=== PATIENT | male | born 1970 | race Caucasian/White ===

== ENCOUNTER 2020-07-18 08:26 | Inpatient (IN) | payer OTHER ==
[~2020-07-18] VITALS: Ht 200.7 cm; Wt 122.0 kg
[2020-07-18] VITALS (11 sets, daily range): BP systolic 108–126; BP diastolic 57–68
[~2020-07-18 08:26] MED LIST: ULTRAM50 M1 PO
--- NOTE | 2020-07-18 08:26 | NUR ---
PATIENT TO ROOM VIA EMS AND PHYSICIAN AT BEDSIDE FOR EVAL
[2020-07-18 09:08] LABS: GFR > 60 ML/MIN (>=60 (CALC)); GFR FOR AFR.AMER. > 60 ML/MIN (>=60 (CALC))
[2020-07-18 09:11] LABS: HEMATOCRIT 38.6 % (39.0-50.0); HEMOGLOBIN 12.9 g/dl (14.0-18.0); IMMATURE GRANULOCYTES 0.4 % (0.0-5.0); MEAN CELL VOLUME 87.9 fL CALC (80.0-100.0); MEAN CORPUSCULAR HGB 29.4 pG CALC (26.0-32.0); MEAN CORPUSCULAR HGB CONC 33.4 g/dL CAL (32.0-36.0); NEUT# 6.45 thou/uL (1.82-7.42); RED BLOOD COUNT 4.39 mill/uL (4.70-6.10); RED CELL DISTRI WIDTH 13.2 % (11.5-15.5)
[2020-07-18 09:28] LABS: ALBUMIN 3.7 g/dL (3.2-5.0); ANION GAP 9 (6-22 (CALC)); BILIRUBIN, TOTAL 0.7 mg/dL (0.0-1.4); BUN 17 mg/dL (9-20); BUN/CREATININE RATIO 17 (12-20 (CALC)); CARBON DIOXIDE 27 mmol/l (22-30); CHLORIDE 105 mmol/l (95-108); GFR > 60 ML/MIN (>=60 (CALC)); GFR FOR AFR.AMER. > 60 ML/MIN (>=60 (CALC)); MAGNESIUM 1.8 mg/dL (1.6-2.3); POTASSIUM 3.9 mmol/l (3.5-5.1); SGOT/AST 21 u/l (17-59); SODIUM 136 mmol/l (137-146); TOTAL PROTEIN 6.2 g/dL (6.3-8.2)
[2020-07-18 09:29] LABS: ALKALINE PHOSPHATASE 28 u/l (38-126)
--- NOTE | 2020-07-18 09:30 | NUR ---
RESTING ON STRETCHER. CALL TIAN WITH GUARDS. GUARDS AT BEDSIDE.
[2020-07-18 09:40] LABS: ACT PARTIAL THROMBO TIME 21.3 SECONDS (20.0-32.5); INTERNATIONAL NORMALIZED RATIO 1.1 RATIO (0.7-1.3); PROTHROMBIN TIME 10.8 SECONDS (9.0-12.5)
--- NOTE | 2020-07-18 10:30 | NUR ---
RESTING ON STRETCHER. AWAITING TRANSPORT TO FLOOR
[2020-07-18] MEDS ORDERED: METFORMIN500 M2 PO (11:01)
[2020-07-18] MEDS ORDERED: TOPROL XL25 M1 PO (11:03)
[2020-07-18] MEDS ORDERED: FENOFIBRATE160 MG PO (11:03)
[2020-07-18] MEDS ORDERED: DIPHENHYDRAM50 M2 PO (11:04)
[2020-07-18] MEDS ORDERED: TRAZODONE100 MG PO (11:04)
--- NOTE | 2020-07-18 11:24 | NUR ---
REPORT TO SHARDA LARSEN TRANSFERRED TO ICU WITH RN FCC RN NOTIFIED OF ADMIT STATUS
--- NOTE | 2020-07-18 11:39 | NUR ---
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
--- NOTE | 2020-07-18 11:39 | NUR ---
male pt received from ER via stretcher accompanied by Maryanne Jose RN in stable condition; guards x2 present; pt denies ability to move or assist with transfer to bed; pt transferred to bed x5 staff plus guards/ no assistance per pt; admission assessment completed at this time; pt alert and oriented; denies pain; no n/v noted; resp even and unlabored; lungs clear bilat; skin color wnl; ra; hr reg; strong pulses; no edema noted; sr on monitor; abd soft with bs present; no bm noted per editorial writer; no urine to inspect at this time; urinal placed at bedside; #20 flushed and patent to lac; no redness or edema noted at site; contussion noted to head; lac x3 noted to forehead; bleeding noted from nose; NIH completed ans scored at 18; pt denies ability to move all extremities/ neck; extremitied repositioned per pt request including adjusting glasses; plan of care explained; will continue to monitor
[2020-07-18] MEDS ORDERED: METOPROL TAR25 MG PO (11:58)
--- NOTE | 2020-07-18 13:15 | NUR ---
Dr Suh called per marine underwriter; [facility] results reviewed; explained per this marine underwriter pt lack of movement in all extremities; orders receivef=d and on chart
--- NOTE | 2020-07-18 14:05 | NUR ---
awake in bed; call light activated per guards; pt requsting staff to "move my arm around"; admits to numbness in arm; pt continues to deny abilty to move arm/ hand; staff at bedside to witness hand movement in connection with speaking; arm repositined per request; pt then request something for anxiety;
--- NOTE | 2020-07-18 14:16 | NUR ---
call light activated per guards; pt requesting to be pulled up in bed;
--- NOTE | 2020-07-18 14:17 | NUR ---
guard at nursing station requesting per pt; requesting to be pulled up in bed; awating additinal help
--- NOTE | 2020-07-18 14:25 | NUR ---
staff at bedside to reposition pt; pt request to have head flat; pt explained MD order require head to be elevated; service writer advisor attempts to lay pt back for repositioning and pt states "that's to low"; service writer advisor informed pt of his previously statement about lying as flat as a board; pt repositioned to left side with pillow propped under right side; pt states "he wants to be more on his side but states "I'm to tilted; pt then states "I don't want to have to thrash about it the bed"; pt also states "I don't want to have to yell or raise my voice"; service writer advisor departed room; nursing sup to be notified; guards remain at bedside
--- NOTE | 2020-07-18 14:30 | NUR ---
Dr Suh called per insurance writer in regards to pt concerns; pt states "I feel like i'm not in control and need something" sedatives explained to pt as well as neuro checks; orders received and on chart
--- NOTE | 2020-07-18 14:45 | NUR ---
nursing supervision present at bedside
--- NOTE | 2020-07-18 14:52 | NUR ---
medicated with xanax; foot board removed for pt comfort; pt cuffed to bed via left ankle;
--- NOTE | 2020-07-18 15:39 | NUR ---
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
--- NOTE | 2020-07-18 16:08 | NUR ---
awake in bed; guards x2 at bedside; footboard noted back on bed; pt requesting arms be moved/ repositioned on; pt then requesting his "butt" be moved; sr on monitor; iv intact; call light within reach; will continue to monitor
--- NOTE | 2020-07-18 16:23 | NUR ---
Dmitri Turcios RN present at bedside to assess NIH
--- NOTE | 2020-07-18 16:45 | NUR ---
PATIENT SEEN IN ICU FOR REEVALUATION OF NIHSS. PATIENT UNABLE TO LIFT ALL 4 EXTREMITIES BUT BABINSKI REFLEXES INTACT WITH PATIENT LIFTING LOWER EXTREMITIES UPON TESTING. PATIENT STILL HAS NO RESISITANCE AGAINST GRAVITY ON BILATERAL UPPER EXTREMITIES AND STATES SENSATION DECREASED ON THE RIGHT. UNABLE TO PERFORM ATAXIA DUE TO UNABLE TO MOVE EXTREMITIES. PATIENT HAS NO DYSARTHRIA, ASPHASIA OR VISUAL FIELD DEFICITS. PATIENT TRACKS WITH EYES AND IS ALERT AND ORIENTED TIMES 3. ADMITTING MD NOTIFIED OF FINDINGS AND ASKED FOR STAT MRI. PATIENT DENIES ANY PAIN AT THIS TIME.
--- NOTE | 2020-07-18 18:26 | NUR ---
awake in bed; staff at bedside to feed pt; guards x2 at bedside; sr on monitor; iv intact and patent; call light within reach
--- NOTE | 2020-07-18 19:50 | NUR ---
RESITNG IN FOWLERS POSITION ON ROUNDS. AWAKE, ALERT AND ORIENTED X4. SPEECH CLEAR AND APPROPRIATELY RESPONDS TO QUESTIONS ASKED. GALINA. FACE SYMMETRICAL, TONGUE MIDLINE ON EXTENSION. PATIENT STATES UNABLE TO MOVE EXTREMITIES. ABLE TO SHRUG SHOULDERS AND MOVE FINGERS SLIGHTLY BILATERALLY. PATIENT UNABLE TO LIFT OR HOLD EXTREMITIES UP TO TEST FOR DRIFT-WHEN LIFTED BY NURSE IMMEDIATELY FALLS TO BED. WITHDRAWS LEGS BIALTERALLY TO SOLE STROKE WITH ORANGE STICK. NIH SCORED 13. RESP NON-LABORED. LUNGS CLEAR. RA O2 SAT 95-99% BREATH SOUNDS CLEAR. IV IN LAC WITH NS INFUSING AT 75 ML/HR. IV SITE BENIGN. ALMOND GRINDER SHOWS SR. DISCUSSED PLAN OF CARE. QUESTIONS ANSWERED. 2 [facility] GUARDS IN ATTENDANCE. PATIENT HAS SHACKLE TO RIGHT ANKLE. CMS ADEQUATE. CALL TIAN IN REACH.
--- NOTE | 2020-07-18 21:30 | NUR ---
TYLENOL 650 MG PO GIVEN FOR C/O NECK ACHING. PATIENT HAS NECK ROLL IN PLACE FOR COMFORT.
--- NOTE | 2020-07-18 23:10 | NUR ---
MEDICATED WITH XANAX PER PATIENT REQUEST FOR SOMETHING TO HELP HIM RELAX. ADJUSTED PATIENT PILLOW AND NECK ROLL FOR HIS COMFORT. ASKED TO HAVE HIS ARMS FOLDED ACROSS HIS ABD.
[2020-07-19] VITALS (9 sets, daily range): BP systolic 98–118; BP diastolic 50–69
--- NOTE | 2020-07-19 | NUR ---
RESTING WITH EYES CLOSED. RESP NON-LABORED. VSS. SR ON MONITOR.
--- NOTE | 2020-07-19 02:00 | NUR ---
SLEEPING. RESP EVEN AND UNLABORED. VSS. MONITOR SR. IV INFUSING WITHOUT INCIDENT.
--- NOTE | 2020-07-19 02:05 | NUR ---
PERLA/RT FROM [facility] PHONED IN FOR CONDITION UPDATE.
--- NOTE | 2020-07-19 04:00 | NUR ---
NO CHANGES TO REPORT. VSS. RESTING QUIETLY WITH EYES CLOSED. SR ON MONITOR.
--- NOTE | 2020-07-19 06:06 | NUR ---
VSS. SLEPT WELL. RESP NON-LABORED. AWAKENS TO NAME. PAITENT HAS NOT VOIDED THIS SHIFT. DID BLADDER SCAN SHOWED 567 ML URINE. PATIENT STATES HE IS JUST BEGINNING TO FEEL LIKE HE WILL NEED TO VOID SOON.
--- NOTE | 2020-07-19 07:11 | NUR ---
PT REPORT RECEIVED FRM DRY PRIMER POWDER BLENDER. PT IS TO HAVE A MRI AT 7, PRINTING AGENT CALLED AND MRI STRETCHER BROUGHT OVER FROM MED SURG. VISHAL FROM ER, KORY PRINTING AGENT, AND THIS SOA INTEGRATION DEVELOPER WAS ABLE TO PLACE PT ON MRI STRETCHER, VISHAL PIEDRA AND LISA PRINTING AGENT AND CLAIM SPECIALIST TOOK PT TO MRI WITH GUARDS. PT STILL UNABLE TO MOVE ANY EXTREMETY TO HELP WITH MOVE. ALERT/ORIENTED X3, NO FFACIAL DROOPING NOTED AND NO CHANGE SINCE YESTERDAY. NIH SCALE FOR ME IS A 16 AT THIS TIME.
--- NOTE | 2020-07-19 07:35 | NUR ---
LISA RN BAND LOG MILL AND CARRIAGE OPERATOR CALLED FROM MRI STATING THAT PT STATES HE CAN NOT LAY HIS HEAD DOWN FLAT FOR 30 MIN FOR MRI, CALLED DR. PRATHER FOR UPDATE AND ORDER GIVEN FOR CT OF BRAIN WITHOUT CONTRAST. PT WILL BE TAKEN OVER
--- NOTE | 2020-07-19 08:04 | NUR ---
PT BACK FROM CT SCAN, PLACED BACK IN BED AND PT ASKED WHEN AM I GOING TO EAT. ADVISED PT OF PROTOCOL OF NOT EATING UNTIL EVALUATED FROM [facility] FOR SWALLOW TEST. PT STILL UNABLE TO MOVE ANY EXTREMETIES.
--- NOTE | 2020-07-19 08:21 | NUR ---
AT THIS TIME HIS NIHS SCALE IS A 13 FOR THIS RADIO INTERFERENCE INVESTIGATOR. PT ABLE TO MOVE FINGERS SOMEWHAT ON LUCILA HANDS, BUT UNABLE TO LIFT ARMS OR LEGS FROM BED, STATES HAS MORE FEELING ON THE RIGHT LEG AND ARM THEN THE LEFT SIDE THIS AM. ALERT/ORIENTED X3. REQUESTING FOOD ONCE AGAIN. STATES WE WILL WAIT UNTIL DOCTOR HAS SEEN HIM. NO URINE YET.
--- NOTE | 2020-07-19 09:54 | NUR ---
CALLED [facility] AND SPOKE TO THE NURSE AND INFORMED THEM THAT THE DOCTOR WAS PLANNING ON DISCHARGING HIM BACK TO FACILITY TODAY . CT SCAN WAS NEGATIVE AND THAT HE THOUGHT PHYSICAL THERAPY WOULD BE WHAT IS NEEDED. INFORMED GUARDS THEY WILL BE GETTING A WHEELCHAIR FROM FACILITY TO USE FOR DISCHARGE. GAVE PT A SANDWICH AND DRINK PER PT REQUEST. ATE IT AND DRANK WITH NO PROBLEMS, HAND FED SANDWICH TO PT BUT PT IS STARTING TO MOVE ARMS AND LEGS MORE BACK AND FORTH, BUT NOT LIFTING THEM UP.
--- NOTE | 2020-07-19 10:50 | NUR ---
CALLED FACILITY AND SPOKE WITH CLAUDIA, GAVE DETAILED INSTRUCTIONS FOR FOLLOW UP OF PT WITH DR. PRATHER SUGGESTING THAT A NEUROPSYCHIATRIC EVAULATION BE DONE SOON POSSIBLE WITH PHYSICAL THERAPY TO BE DONE ON DAILY BASIS UNTIL PT IS ABLE TO HAVE NORMAL USE OF LEGS AND ARMS.
--- NOTE | 2020-07-19 12:16 | NUR ---
FEEDING PT LUNCH WHILE WAITING FOR A STRETCHER TO BE ABLE TO TRANSPORT PT BACK TO FACILITY, SPOKE WITH FACILITY AN ADVISED THAT WE WOULD NOT BE ABLE TO PLACE PT IN WHEELCHAIR SINCE HE COULD NOT STAND UP ON LEGS OR HELP US WITH MOVING HIM TO A WHEELCHAIR AT ALL. AND THEY SAID THAT THEY COULD SEND OUT A STRETCHER. NOTICED WHILE FEEDING PT THAT HE WAS MOVING LEGS BACK AND FORTH MORE BUT STILL NOT USING HIS ARMS, HE SAID HE HAS MORE FEELING IN ALL EXTREMETIES DAY GOES ON WITH HIM TRYING TO MOVE THEM.
[2020-07-19] MEDS ORDERED: ASPIRIN ADULT L81 M2 PO (12:40)
--- NOTE | 2020-07-19 12:46 | NUR ---
PT MOVING BOTH LEGS UP AND DOWN FROM KNEES UP, TOES ARE MOVING. PTS FINGERS ARE MOVING AND HAND GRASPS ARE WEAK BUT ABLE TO GRASP. STILL STATES HIS ARMS FEELS NUMB, BUT IS ABLE TO PUSH UP WHEN PUSHING DOWN ON SHOULDERS. STATES SENSATION IS GETTING STRONGER IN BOTH ARMS AND LEGS.
--- NOTE | 2020-07-19 12:58 | NUR ---
SPOKE WITH FACILITY ABOUT PT ONCE AGAIN, AND ADVISED THAT PT IS STILL NOT ABLE TO HOLD LEGS OR ARMS UP BUT IS MOVING THEM ALL AROUND AND HAS SENSATION IN ALL 4 EXTREMETIES AND THAT IT IS BETTER THAN IT WAS THIS AM AND IMPROVING EVERY TIME I GO IN. SHE STATES THAT THE FACILITY HAS SOME CONCERNS ABOUT TAKING PT BACK. ADVISED THAT THE DOCTOR HAD WRITTEN DISCHARGE INST BUT IF THEIR DOCTOR WOULD LIKE TO SPEAK TO DR. PRATHER ARRANGEMENTS COULD BE MADE. THEY WILL UPDATE ME IN A FEW MIN.
--- NOTE | 2020-07-19 13:23 | NUR ---
SAW PATIENT IN ICU FOR RE-EVALUATION OF NIHSS SCORING THAT THIS REVERSER DID YESTERDAY.UPON WALKING INTO ROOM NOTICED PATIENT MOVING BILATERAL LOWER EXTREMITIES WITHOUT DIFFICULTY. WALKED IN ROOM GREETED PATIENT, PATIENT STATES HE IS DOING BETTER AND CAN MOVE HIS LEGS MORE. ASKED PATIENT TO DEMONSTRATE AND PATIENT STARTS PUSHING AGAINST BED AND LIFTING BUTTOCKS OFF THE BED. HAVING CASUAL CONVERSATION WITH PATIENT AND NOTICING MOVING OF LEFT FINGERS I ASKED PATIENT TO POINT TO WHICH HAND HE SAW MOVING AND WITH PATIENTS LEFT ARM LIFTED IT LONG TERM AND POINTED TO THIS WRITERS MOVING HAND BEFORE FLOPPING THE ARM BACK DOWN TO THE BED AND STATING "OH I CANT MOVE THAT ARM". WHILE TESTING PATIENT FOR DYSARTHRIA AND ASPHASIA RUNNING THROUGH WORDS AND SENTENCES PATIENT TESTED FOR SENSATION WITHOUT PATIENT KNOWING TOUCHING WITH AN ORANGE STICK PATIENT MOVING ARMS IN REACTION OF USING THE ORANGE STICK. PATIENT HAS NO VISUAL FIELD DEFICITS AND SENSATION IS EQUAL BILATERALLY. UNABLE TO COMPLETE ASSESSMENT FOR ATAXIA DUE TO PATIENT STATING INABILITY TO MOVE BILATERAL ARMS AND LEGS. PATIENT HAS NO ASPHASIA OR DYSARTHRIA. NIHSS FOR DRIFT ON BILATER LOWER EXTREMITIES BASED UPON WATCHING PATIENT LIFT AND PUSH OFF WITH LEGS WHEN I WAS NOT PHYSICIALLY ASSESSING THE NIHSS AT WHICH TIME PATIENT STATED HE COULD NOT PERFORM THE TASK.
--- NOTE | 2020-07-19 14:37 | NUR ---
[facility] HERE FOR TRANSFER PER SET UP BY [facility], DURING TRANSFER FROM BED TO STRETCHER PT LIFTED BOTH ARMS UP ON HIS OWN WHEN HE THOUGHT HE WAS GOING TO FALL. BUT WHEN THIS AUTISTIC TEACHER ASKED PT TO LIFT UP ARMS PT STATES HE WAS UNABLE TO. PT DISCHARGED WITH INST. AND RX. VERBAL CONSENT GIVEN FROM PT. PAPERS WERE GIVEN TO OFFICERS. BELONGINGS WERE SENT WITH OFFICER.
== END 2020-07-19 15:00 | disposition designated cancer center or children's hospital (05) | DRG 882 ==
LOC: ED 08:26 → ED-I 09:53 → ED 10:24 → ICU 10:25
PROVIDERS: Emergency Medicine; ADMIT Internal Medicine; ATTEND Internal Medicine
DX: F45.8 Other somatoform disorders (principal); S00.83XA Contusion of other part of head, initial encounter; I95.9 Hypotension, unspecified; I10 Essential (primary) hypertension; E11.9 Type 2 diabetes mellitus without complications; F60.1 Schizoid personality disorder; R41.83 Borderline intellectual functioning; E78.5 Hyperlipidemia, unspecified; W01.198A Fall on same level from slipping, tripping and stumbling with subsequent striking against other object, initial encounter; Y92.143 Cell of prison as the place of occurrence of the external cause; Z79.84 Long term (current) use of oral hypoglycemic drugs; Z20.822 Contact with and (suspected) exposure to COVID-19
CPT/HCPCS: Q9967